=== PATIENT | male | born 1965 | race Caucasian/White ===

== ENCOUNTER 2020-08-08 13:03 | Outpatient (REF) | payer MEDICARE, MEDICAID, SELFPAY | END 2020-08-08 13:04 | disposition home or self-care (01) | LOC: HO.LAB 13:03 | PROVIDERS: Visit Provider Internal Medicine | DX: Z20.822 Contact with and (suspected) exposure to COVID-19 (principal) | CPT/HCPCS: 36415; C9803; U0003 ==

== ENCOUNTER 2021-02-13 09:39 | Emergency (ER) | payer MEDICARE, MEDICAID, SELFPAY ==
--- NOTE | 2021-02-13 | ECG_ITS ---
Test Reason : CHEST PAIN Blood Pressure : / mmHG Vent. Rate : 062 BPM Atrial Rate : 062 BPM P-R Int : 152 ms QRS Dur : 088 ms QT Int : 426 ms P-R-T Axes : 004 029 052 degrees QTc Int : 432 ms Normal sinus rhythm Normal ECG No significant changes when compared with the previous EKG of 17 dec 2015 Referred By: Generic ED Physician Electronically Signed By:NANCY TALLEY
--- NOTE | ~2021-02-13 | XR_ITS ---
EXAMINATION: XR CHEST CLINICAL INFORMATION: Chest pain. COMPARISON: None TECHNIQUE: Frontal view of the chest was obtained. FINDINGS: Both lungs are fairly well-expanded and clear. The heart size and pulmonary vascularity is normal. No gross bony abnormality seen. XR/XR chest 1V IMPRESSION: Unremarkable chest exam.
[2021-02-13 11:01] VITALS: BP 130/88; PULSE 60; RESP 22; TEMP 36.8; O2SAT 97; BMI 25.0
[2021-02-13 12:25] LABS: MANUAL DIFF FLAG NO
[2021-02-13 12:31] LABS: Basophils Percent Auto 0.4 % (0-2); Eosinophils Absolute Auto 0.1 X10*3/uL (0.0-0.4); Eosinophils Percent Auto 1.2 % (0-4); Hematocrit 42.8 % (42-52); Hemoglobin 14.3 g/dl (14.0-18.0); Imm Gran Abs Auto 0.02 X10*3/uL (0.00-0.03); Imm Gran Pct Auto 0.3 % (0.0-0.4); Lymphocytes Absolute Auto 2.6 X10*3/uL (1.2-4.9); Lymphocytes Percent Auto 33.8 % (20-40); Mean Corpuscular HGB Conc 33.4 g/dl (31.0-36.0); Mean Corpuscular Hemoglobin 30.4 pg (27.0-33.0); Mean Corpuscular Volume 91.1 fL (80-98); Mean Platelet Volume 9.3 fL (9.4-12.4); Monocytes Absolute Auto 0.7 X10*3/uL (0.1-1.2); Monocytes Percent Auto 8.6 % (2-11); Neutrophils Absolute Auto 4.3 X10*3/uL (2.0-8.3); Neutrophils Percent Auto 55.7 % (45-73); Platelet Count 338 X10*3/uL (160-400); Red Cell Distribution Width 12.5 % (11.0-16.0); White Blood Count 7.7 X10*3/uL (4.8-10.8)
[2021-02-13 13:11] LABS: Anion Gap 14 (12-20); Blood Urea Nitrogen 12 mg/dL (9-16); Calcium 9.3 mg/dL (8.4-10.2); Carbon Dioxide 25 mmol/L (22-29); Chloride 103 mmol/L (96-108); Creatinine Clr Calc Pharmacy 77.4; Estimated Glomerular Filt Rate > 60; Glucose Random 103 mg/dL (60-115); Potassium 4.2 mmol/L (3.3-5.1); Sodium 138 mmol/L (135-145)
[2021-02-13 13:18] LABS: Troponin-I High Sensitivity < 3.5 ng/L (<3.5-35.0)
[2021-02-13 13:27] VITALS: BP 129/87; PULSE 61; RESP 14; O2SAT 99
[2021-02-13 13:31] LABS: COVID-19 Test Negative (Negative)
--- NOTE | 2021-02-13 14:04 | ED.CHESTPAIN ---
HPI - Chest Pain General Chief Complaint: Chest Pain Stated Complaint: chest pain Time Seen by Provider: 02/13/21 12:37 History of Present Illness HPI narrative: Patient is a 55-year-old male presented having chest pain. The chest pain is 1-2 second is sharp it is worse with coughing. He goes to the arm. Patient has a history of smoking. No history diabetes. Positive history of hypertension. No history of PR. No stress test done recently. Positive history of high cholesterol. Patient denies any diaphoresis. Did get his coronavirus vaccine. Patient from home. No recent stress test done in the past. Related Data Previous Rx's Medication Instructions Recorded lisinopril 10 mg tablet 10 mg PO DAILY #90 tab 12/10/20 tramadol 50 mg tablet 50 mg PO Q8H 30 Days #90 tab 01/14/21 zolpidem 5 mg tablet 5 mg PO BEDTIME 90 Days #90 tab 02/06/21 lidocaine-prilocaine 2.5 %-2.5 % 1 appl TOPICAL .BID PRN 30 Days 02/10/21 topical cream #30 g Allergies Allergy/AdvReac Type Severity Reaction Status Date / Time trazodone AdvReac Intermediate dizziness Verified 02/06/21 12:08 Review of Systems Review of Systems: No fever no chills Positive coughing upper respiratory symptoms Positive chest pain with coughing All systems reviewed otherwise negative PMFSH Past Medical History Attestation statement: The following information was validated with the patient. Medical History Alcohol abuse Allergic rhinitis Anxiety and depression Chronic kidney disease Fracture of middle phalanx of finger GERD (gastroesophageal reflux disease) Herpes Hypercholesterolemia Hypertension Insomnia Left rib fracture Pulmonary nodule Tobacco abuse Wrist fracture, right Surgical History Deficient knowledge of leg surgery History of cataract surgery History of open reduction and internal fixation (ORIF) procedure Family History Family History Father No problems noted. Mother No problems noted. Maternal Aunt Colon cancer Myocardial infarction Maternal Uncle Myocardial infarction Brother No problems noted. Sister No problems noted. Daughter No problems noted. Social History Social History Housing: Apartment Patient Tobacco Use Status: Current someday Tobacco user Tobacco use type: Cigarette Cigarettes Per Day: 5 Advance Directives: No Advance Directives Information Provided: Yes service: No Current occupational status: disabled Physical Exam Vital Signs: Vital Signs: Last Vital Signs Temp 98.3 F 02/13/21 11:01 Pulse 61 02/13/21 13:27 Resp 14 02/13/21 13:27 BP 129/87 02/13/21 13:27 Pulse Ox 99 02/13/21 13:27 Body Mass Index 25.0 Appearance: Alert. Oriented X3. No acute distress. Eyes: Pupils equal, round and reactive to light. ENT: Pharynx normal. Neck: Normal inspection. Neck supple. No lymph nodes noted. No crepitus CVS: Normal heart rate and rhythm. Pulses normal. Normal S1 and S2 Respiratory: No respiratory distress. Breath sounds normal. No Wheezing. No rales Abdomen: Soft and nontender. No rigidity. No distention. good BS x4 Skin: Skin warm and dry. Normal skin color. Normal skin turgor. Extremities: No lower extremity edema. Neurovascular intact to all extremities. No Lacerations. No Rash Neuro: Oriented X 3. No motor deficit. No sensory deficit. Moving all extermities. No slurred speech MDM - Chest Pain MDM Narrative Medical decision making narrative: Atypical chest pain lasting 1-2 seconds patient's troponins negative. EKG showed a sinus pattern heart rate was 60 [place] QRS QT within normal limits is no acute ST segment elevation. Discussed with patient the need for follow-up. Patient's chest x-ray showed no evidence of pneumonia. No pneumothorax. Patient's COVID-19 test was negative no evidence for COVID for now. In stable condition. Lab Data Result diagrams: 02/13/21 12:22 02/13/21 12:22 Labs: Lab Results 02/13/21 02/13/21 02/13/21 Range/Units 12:22 12:22 12:22 WBC 7.7 (4.8-10.8) X10*3/uL RBC 4.70 (4.60-5.80) X10*6/uL Hgb 14.3 (14.0-18.0) g/dl Hct 42.8 (42-52) % MCV 91.1 (80-98) fL MCH 30.4 (27.0-33.0) pg MCHC 33.4 (31.0-36.0) g/dl RDW 12.5 (11.0-16.0) % Plt Count 338 (160-400) X10*3/uL MPV 9.3 L (9.4-12.4) fL Immature Gran % (Auto) 0.3 (0.0-0.4) % Neut % (Auto) 55.7 (45-73) % Lymph % (Auto) 33.8 (20-40) % [place] % (Auto) 8.6 (2-11) % Eos % (Auto) 1.2 (0-4) % Baso % (Auto) 0.4 (0-2) % Lymph # (Auto) 2.6 (1.2-4.9) X10*3/uL [place] # (Auto) 0.7 (0.1-1.2) X10*3/uL Eos # (Auto) 0.1 (0.0-0.4) X10*3/uL Baso # (Auto) 0.0 (0.0-0.2) X10*3/uL Abs Immat Gran (auto) 0.02 (0.00-0.03) X10*3/uL Absolute Neuts (auto) 4.3 (2.0-8.3) X10*3/uL Absolute Nucleated RBC 0.000 (0.0-0.012) X10*3/uL Nucleated RBC % (auto) 0.0 (0.0-0.2) /100WBC Sodium 138 (135-145) mmol/L Potassium 4.2 (3.3-5.1) mmol/L Chloride 103 (96-108) mmol/L Carbon Dioxide 25 (22-29) mmol/L Anion Gap 14 (12-20) BUN 12 (9-16) mg/dL Creatinine 1.10 (0.5-1.4) mg/dL Estim Creat Clear Calc 77.4 Estimated GFR > 60 Random Glucose 103 (60-115) mg/dL Calcium 9.3 (8.4-10.2) mg/dL Troponin I High Sens < 3.5 (<3.5-35.0) ng/L COVID-19 ([place]) (Negative) COVID-19 Clin Com 02/13/21 Range/Units 13:10 WBC (4.8-10.8) X10*3/uL RBC (4.60-5.80) X10*6/uL Hgb (14.0-18.0) g/dl Hct (42-52) % MCV (80-98) fL MCH (27.0-33.0) pg MCHC (31.0-36.0) g/dl RDW (11.0-16.0) % Plt Count (160-400) X10*3/uL MPV (9.4-12.4) fL Immature Gran % (Auto) (0.0-0.4) % Neut % (Auto) (45-73) % Lymph % (Auto) (20-40) % [place] % (Auto) (2-11) % Eos % (Auto) (0-4) % Baso % (Auto) (0-2) % Lymph # (Auto) (1.2-4.9) X10*3/uL [place] # (Auto) (0.1-1.2) X10*3/uL Eos # (Auto) (0.0-0.4) X10*3/uL Baso # (Auto) (0.0-0.2) X10*3/uL Abs Immat Gran (auto) (0.00-0.03) X10*3/uL Absolute Neuts (auto) (2.0-8.3) X10*3/uL Absolute Nucleated RBC (0.0-0.012) X10*3/uL Nucleated RBC % (auto) (0.0-0.2) /100WBC Sodium (135-145) mmol/L Potassium (3.3-5.1) mmol/L Chloride (96-108) mmol/L Carbon Dioxide (22-29) mmol/L Anion Gap (12-20) BUN (9-16) mg/dL Creatinine (0.5-1.4) mg/dL Estim Creat Clear Calc Estimated GFR Random Glucose (60-115) mg/dL Calcium (8.4-10.2) mg/dL Troponin I High Sens (<3.5-35.0) ng/L COVID-19 ([place]) Negative (Negative) COVID-19 Clin Com See Note Discharge Plan Discharge Clinical Impression: Chest pain Patient Disposition: Home, Self-Care Instructions: Chest Pain (ED) Prescriptions: No Action lisinopril 10 mg tablet 10 mg PO DAILY Qty: 90 RF: 2 tramadol 50 mg tablet 50 mg PO Q8H 30 Days Qty: 90 RF: 0 lidocaine-prilocaine 2.5-2.5 % cream 1 appl topical .BID PRN (Reason: pain) 30 Days Qty: 30 RF: 0 zolpidem 5 mg tablet 5 mg PO BEDTIME 90 Days Qty: 90 RF: 0 Referrals: Po,Stuart Branham MD [Primary Care Provider] - 2 days Print Language: Greenlandic
== END 2021-02-13 14:33 | disposition home or self-care (01) ==
PROVIDERS: Emergency Provider Emergency Medicine Emergency Medical Services; PCP Internal Medicine
DX: R07.9 Chest pain, unspecified (principal); R05 Cough; F17.210 Nicotine dependence, cigarettes, uncomplicated; Z20.822 Contact with and (suspected) exposure to COVID-19; Z71.6 Tobacco abuse counseling; Z79.899 Other long term (current) drug therapy
CPT/HCPCS: 36415; 71045; 80048; 84484; 85025; 87635; 93005; 99284

== ENCOUNTER 2021-04-24 09:42 | Emergency (ER) | payer MEDICARE, MEDICAID, SELFPAY ==
[2021-04-24 09:49] VITALS: BP 127/84; PULSE 58; RESP 16; TEMP 36.6; O2SAT 98; BMI 29.8
--- NOTE | 2021-04-24 10:47 | ED.BACK ---
HPI - Back Pain/Injury General Chief Complaint: Back Pain/Injury Stated Complaint: back & leg pain Time Seen by Provider: 04/24/21 10:10 Source: patient Mode of arrival: ambulatory Limitations: no limitations History of Present Illness HPI Narrative: 55 y/o male iwth history of anxiety, depression, HTN, HLD, GERD who presents to the ER with right lower back pain that radiates down his right leg. The pain started 1 week ago after lifting heavy metal at work. The pain has been progressively getting worse and he has been continuing to work and doing heavy lifting. He now walks with a limp because of the pain. He has been taking Tylenol with little relief. He denies any numbness, tingling, or bowel/bladder incontinence. He has no weakness in his LE, just pain. He denies history of pain like this before. MD elicited complaint: back pain and back injury Onset (ago): week(s) (1) Timing: constant Severity: severe Pain scale (0-10): 9 Similar Symptoms Previously: No Quality: aching and spasming Location: right lower back Radiation: right upper leg Exacerbating factors: movement Relieving factors: supine Context: while lifting Associated symptoms: denies other symptoms Treatments prior to arrival: acetaminophen Work related injury: Yes Related Data Previous Rx's Medication Instructions Recorded lisinopril 10 mg tablet 10 mg PO DAILY #90 tab 12/10/20 zolpidem 5 mg tablet 5 mg PO BEDTIME 90 Days #90 tab 02/06/21 lidocaine-prilocaine 2.5 %-2.5 % 1 appl TOPICAL .BID PRN 30 Days 02/10/21 topical cream #30 g benzonatate 100 mg capsule 100 mg PO TID PRN #20 cap 02/13/21 (Tessalon Perles) tramadol 50 mg tablet 50 mg PO Q8H 30 Days #90 tab 03/17/21 cyclobenzaprine 10 mg tablet 10 mg PO TID PRN #10 tab 04/24/21 lidocaine 5 % topical patch 1 patch TOPICAL DAILY #15 ea 04/24/21 (Lidoderm) tramadol 50 mg tablet 50 mg PO Q8H PRN #6 tab 04/24/21 Allergies Allergy/AdvReac Type Severity Reaction Status Date / Time trazodone AdvReac Intermediate dizziness Verified 02/06/21 12:08 Review of Systems Review of Systems: Constitutional: No Fever, No Chills Respiratory: No Cough, No Sputum, No Wheezing, No dyspnea Gastrointestinal: No Nausea, No Vomiting, No Diarrhea, No abdominal Pain Genitourinary: No Dysuria, No Urinary Frequency, No Hematuria Musculoskeletal: + joint pain, + Myalgias Skin: No Skin Lesions, No rash Neuro: No Weakness, No Numbness Heme/Lymph: No Bruising, No Lymphadenopathy PMFSH Past Medical History Medical History Alcohol abuse Allergic rhinitis Anxiety and depression Chronic kidney disease Fracture of middle phalanx of finger GERD (gastroesophageal reflux disease) Herpes Hypercholesterolemia Hypertension Insomnia Left rib fracture Pulmonary nodule Tobacco abuse Wrist fracture, right Surgical History Deficient knowledge of leg surgery History of cataract surgery History of open reduction and internal fixation (ORIF) procedure Family History Family History Father No problems noted. Mother No problems noted. Maternal Aunt Colon cancer Myocardial infarction Maternal Uncle Myocardial infarction Brother No problems noted. Sister No problems noted. Daughter No problems noted. Social History Social History Housing: Apartment Patient Tobacco Use Status: Current someday Tobacco user Tobacco use type: Cigarette Cigarettes Per Day: 5 Advance Directives: No service: No Current occupational status: disabled Physical Exam Vital Signs: Vital Signs: Last Vital Signs Temp 97.8 F 04/24/21 09:49 Pulse 58 04/24/21 09:49 Resp 16 04/24/21 09:49 BP 127/84 04/24/21 09:49 Pulse Ox 98 04/24/21 09:49 Body Mass Index 29.8 Appearance: Alert. Oriented X3. No acute distress. HEENT: normal external inspection Neck: Normal inspection. Neck supple. Respiratory: No respiratory distress. Abdomen: Soft and nontender. +BS x4 Back: normal inspection, right lower lumbar soft tissue tenderness with SI joint tenderness on the right. +straight leg raise on the right. Skin: Skin warm and dry. Normal skin color. Normal skin turgor. No rashes. Extremities: No lower extremity edema. Neuro: Oriented X 3. No motor deficit. No sensory deficit. Ambulates with slight limp, steady. Course Course Course Narrative: 55 yo male presenting with right lower back pain that radiates down into his right leg x1 week after heavy lifting. No red flag symptoms of low back pain. Will treat for muscle strain and probable sciatica. He agrees to follow up with Dr. Win and will take some time off of work to rest. Stable for d/c home. Discharge Plan Discharge Clinical Impression: Strain of lumbar region Qualifiers: Encounter type: initial encounter Qualified Code(s): S39.012A - Strain of muscle, fascia and tendon of lower back, initial encounter Sciatica Qualifiers: Laterality: right Qualified Code(s): M54.31 - Sciatica, right side Patient Disposition: Home, Self-Care Instructions: Sciatica (ED), Low Back Strain (ED), Lower Back Exercises (ED) Additional Instructions: No bending, lifting or twisting. Use ice several times per day for 20 minutes at a time for the next 48 hours and then change to heat. Take medications as prescribed to help with pain and discomfort. Follow up with your Primary Care Doctor this week. If your pain worsens, if you develop new numbness, tingling, weakness, loss of function or incontinence call 911 or come back to the ER right away for evaluation. Prescriptions: New cyclobenzaprine 10 mg tablet 10 mg PO TID PRN (Reason: muscle spasm) Qty: 10 RF: 0 lidocaine [Lidoderm] 5 % adhesive patch,medicated 1 patch topical DAILY Qty: 15 RF: 0 tramadol 50 mg tablet 50 mg PO Q8H PRN (Reason: pain) Qty: 6 RF: 0 No Action lisinopril 10 mg tablet 10 mg PO DAILY Qty: 90 RF: 2 lidocaine-prilocaine 2.5-2.5 % cream 1 appl topical .BID PRN (Reason: pain) 30 Days Qty: 30 RF: 0 tramadol 50 mg tablet 50 mg PO Q8H 30 Days Qty: 90 RF: 3 benzonatate [Tessalon Perles] 100 mg capsule 100 mg PO TID PRN (Reason: cough) Qty: 20 RF: 0 zolpidem 5 mg tablet 5 mg PO BEDTIME 90 Days Qty: 90 RF: 0 Referrals: Po,Stuart Branham MD [Primary Care Provider] - 3 days (LBP) Print Language: Zimbabwean
[2021-04-24] MEDS: HYDROcodone Bit/Acetam 5/325 TABLET 1 TAB PO (11:05)
[2021-04-24] MEDS: Ketorolac Tromethamine 15 MG/ML VIAL 30 MG IM (11:06)
[2021-04-24] MEDS: Lidocaine 4 % Patch ADH..PATCH 1 PATCH TRANSDERMA (11:09)
== END 2021-04-24 11:37 | disposition home or self-care (01) ==
PROVIDERS: Emergency Provider Emergency Medicine; PCP Internal Medicine
DX: M54.41 Lumbago with sciatica, right side (principal); M79.604 Pain in right leg; I10 Essential (primary) hypertension; F17.210 Nicotine dependence, cigarettes, uncomplicated; Z71.6 Tobacco abuse counseling; Z79.899 Other long term (current) drug therapy
CPT/HCPCS: 96372; 99284; J1885

== ENCOUNTER 2021-07-15 09:56 | Outpatient (REF) | payer MEDICARE, MEDICAID, SELFPAY ==
[2021-07-15 10:17] LABS: MANUAL DIFF FLAG NO
--- NOTE | 2021-07-15 10:18 | ECG_ITS ---
Test Reason : htn Blood Pressure : / mmHG Vent. Rate : 057 BPM Atrial Rate : 057 BPM P-R Int : 160 ms QRS Dur : 092 ms QT Int : 434 ms P-R-T Axes : 018 032 038 degrees QTc Int : 422 ms Sinus bradycardia Otherwise normal ECG When compared with ECG of 13-FEB-2021 10:10, No significant change was found Referred By: Stuart Win Electronically Signed By:NANCY TALLEY
[2021-07-15 10:58] LABS: Basophils Absolute Auto 0.1 X10*3/uL (0.0-0.2); Basophils Percent Auto 0.6 % (0-2); Eosinophils Absolute Auto 0.4 X10*3/uL (0.0-0.4); Eosinophils Percent Auto 4.8 % (0-4); Hemoglobin 14.5 g/dl (14.0-18.0); Imm Gran Abs Auto 0.02 X10*3/uL (0.00-0.03); Imm Gran Pct Auto 0.3 % (0.0-0.4); Lymphocytes Absolute Auto 3.8 X10*3/uL (1.2-4.9); Lymphocytes Percent Auto 47.9 % (20-40); Mean Corpuscular Volume 91.1 fL (80.0-98.0); Mean Platelet Volume 9.9 fL (9.4-12.4); Monocytes Absolute Auto 0.8 X10*3/uL (0.1-1.2); Monocytes Percent Auto 9.7 % (2-11); Neutrophils Absolute Auto 2.9 x10*3/uL (2.0-8.3); Neutrophils Percent Auto 36.7 % (45-73); Platelet Count 294 X10*3/uL (160-400); Red Blood Count 4.83 X10*6/uL (4.60-5.80); Red Cell Distribution Width 13.1 % (11.0-16.0)
[2021-07-15 11:21] LABS: Alanine Aminotransferase 26 U/L (0-40); Albumin Level 4.3 g/dL (3.5-5.0); Alkaline Phosphatase 72 U/L (39-117); Anion Gap 14 (12-20); Aspartate Amino Transferase 24 U/L (5-37); Bilirubin Total 0.6 mg/dL (0.0-1.0); Blood Urea Nitrogen 14 mg/dL (9-16); Calcium 9.4 mg/dL (8.4-10.2); Carbon Dioxide 26 mmol/L (22-29); Chloride 106 mmol/L (96-108); Cholesterol 246 mg/dL; Estimated Glomerular Filt Rate 59; Glucose Random 95 mg/dL (60-115); HDL Cholesterol 64 mg/dL; LDL Cholesterol Calculated 153 mg/dl; Potassium 4.3 mmol/L (3.3-5.1); Sodium 142 mmol/L (135-145); Total Protein 6.9 g/dL (6.5-8.0); Triglycerides 145 mg/dL
[2021-07-15 11:48] LABS: Free T4 (Free Thyroxine) 0.84 ng/dL (0.71-1.85); Prostate Specific Antigen Scr 1.43 ng/mL (<0.05-4.0)
[2021-07-15 12:00] LABS: Vitamin B12 286 pg/mL (200-900)
== END 2021-07-15 09:57 | disposition home or self-care (01) ==
LOC: HO.LAB 09:56
PROVIDERS: PCP Internal Medicine; Visit Provider Internal Medicine
DX: Z12.5 Encounter for screening for malignant neoplasm of prostate (principal); I10 Essential (primary) hypertension; E78.00 Pure hypercholesterolemia, unspecified; K21.9 Gastro-esophageal reflux disease without esophagitis
CPT/HCPCS: 36415; 80053; 80061; 82607; 82746; 84153; 84439; 84443; 85025; 93005

== ENCOUNTER 2021-09-23 10:59 | Emergency (ER) | payer MEDICARE, MEDICAID, SELFPAY ==
[2021-09-23 11:22] VITALS: BP 100/64; PULSE 59; RESP 16; TEMP 35.6; O2SAT 96; BMI 29.3
[2021-09-23 11:37] LABS: MANUAL DIFF FLAG NO
[2021-09-23 11:41] LABS: Basophils Percent Auto 0.3 % (0-2); Eosinophils Absolute Auto 0.1 X10*3/uL (0.0-0.4); Eosinophils Percent Auto 1.1 % (0-4); Hematocrit 41.9 % (42.0-52.0); Imm Gran Abs Auto 0.05 X10*3/uL (0.00-0.03); Imm Gran Pct Auto 0.4 % (0.0-0.4); Lymphocytes Absolute Auto 1.9 X10*3/uL (1.2-4.9); Lymphocytes Percent Auto 14.1 % (20-40); Mean Corpuscular HGB Conc 33.4 g/dl (31.0-36.0); Mean Corpuscular Hemoglobin 30.5 pg (27.0-33.0); Mean Corpuscular Volume 91.3 fL (80.0-98.0); Mean Platelet Volume 9.4 fL (9.4-12.4); Monocytes Absolute Auto 1.1 X10*3/uL (0.1-1.2); Neutrophils Percent Auto 76.1 % (45-73); Platelet Count 286 X10*3/uL (160-400); Red Blood Count 4.59 X10*6/uL (4.60-5.80); Red Cell Distribution Width 12.8 % (11.0-16.0); White Blood Count 13.2 X10*3/uL (4.8-10.8)
[2021-09-23 11:52] LABS: Anion Gap 12 (12-20); Blood Urea Nitrogen 12 mg/dL (9-16); Calcium 9.5 mg/dL (8.4-10.2); Carbon Dioxide 30 mmol/L (22-29); Chloride 102 mmol/L (96-108); Creatinine Clr Calc Pharmacy 59.4; Estimated Glomerular Filt Rate 52; Glucose Random 118 mg/dL (60-115); Potassium 4.3 mmol/L (3.3-5.1); Sodium 140 mmol/L (135-145)
--- NOTE | 2021-09-23 12:48 | ED.DIZZY ---
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 of arrival: ambulatory Limitations: no limitations History of Present Illness MD elicited complaint: lightheadedness Onset (ago): hour(s) (10 am today when he woke up) Timing: sudden onset, awoke with symptoms and intermittent Severity: moderate Description: lightheadedness Context: change in body position (happens anytime he stands feels fine laying down) History of similar symptoms: No Exacerbating factors: change in body position and standing Relieving factors: remaining still and lying down Associated symptoms: nausea and vomiting (1) Related Data Previous Rx's Medication Instructions Recorded lisinopril 10 mg tablet 10 mg PO DAILY #90 tab 09/08/21 tramadol 50 mg tablet 50 mg PO Q8H 30 Days #90 tab 09/08/21 zolpidem 10 mg tablet 10 mg PO BEDTIME 30 Days #20 tab 09/10/21 ondansetron 4 mg disintegrating 4 mg PO Q8H PRN #20 tab 09/23/21 tablet Allergies Allergy/AdvReac Type Severity Reaction Status Date / Time trazodone AdvReac Intermediate dizziness Verified 09/08/21 10:34 Review of Systems Review of Systems: Constitutional : No Weight loss, No Fever, No Chills ENT/Mouth : No sore throat, No Rhinorrhea Eyes: No Swelling, No Redness Cardiovascular : No Chest Pain, No SOB, NoEdema Respiratory : No Cough, No Sputum, No Wheezing Gastrointestinal : Positive Nausea, Positive Vomiting, no Diarrhea, no abdominal Pain, No Hematochezia, No Melena Genitourinary : No Dysuria, No Urinary Frequency, No Hematuria, No Urgency Musculoskeletal : No joint pain, No Myalgias, No Joint Swelling Skin : No Skin Lesions, No rash Neuro : No Weakness, No Numbness, pos Dizziness, No Headache Psych : No Anxiety/Panic, No Depression Heme/Lymph: No Bruising, No Lymphadenopathy Endocrine : No Polyuria, No Polydipsia All other systems reviewed and are negative. [facility] Past Medical History Medical History (Updated 09/23/21 @ 14:50 by Dalia Moore DO) Alcohol abuse Allergic rhinitis Chronic kidney disease Fracture of middle phalanx of finger GERD (gastroesophageal reflux disease) Herpes Hypercholesterolemia Hypertension Insomnia Left rib fracture Pulmonary nodule Tobacco abuse Wrist fracture, right Surgical History (Updated 09/21/21 @ 13:43 by Nata Ramos RN) Deficient knowledge of leg surgery H/O colonoscopy History of cataract surgery History of open reduction and internal fixation (ORIF) procedure History of pterygium excision Family History Family History Father No problems noted. Mother No problems noted. Maternal Aunt Colon cancer Myocardial infarction Maternal Uncle Myocardial infarction Colon cancer Brother No problems noted. Sister No problems noted. Daughter No problems noted. Social History Social History (Updated 09/21/21 @ 13:44 by Nata Ramos RN) Housing: Apartment Alcohol intake: current Alcohol intake frequency: former alcohol drinker Patient Tobacco Use Status: Former Tobacco user Quit Date: 07/2021 Tobacco use type: Cigarette Cigarettes Per Day: 5 Years Smoked: 35 e-Cigarette/Vaping Use: Never Used Second Hand Smoke Exposure: No Advance Directives: No Advance Directives Information Provided: No service: No Current occupational status: disabled Cognitive needs: No Hearing needs: No Vision needs: Yes (Glasses) Physical Exam Vital Signs: Vital Signs: Last Vital Signs Temp 96.1 F L 09/23/21 11:22 Pulse 55 09/23/21 13:35 Resp 18 09/23/21 13:35 BP 128/79 09/23/21 13:35 Pulse Ox 100 09/23/21 13:35 BMI result Body Mass Index 29.3 Appearance: Alert. Oriented X3. No acute distress. Eyes: Pupils equal, round and reactive to light. ENT: Pharynx normal. Neck: Normal inspection. Neck supple. CVS: Normal heart rate and rhythm. Pulses normal. Respiratory: No respiratory distress. Breath sounds normal. Abdomen: Soft and non-tender. Skin: Skin warm and dry. Normal skin color. Normal skin turgor. Extremities: No lower extremity edema. No calf ttp Neuro: Oriented X 3. No motor deficit. No sensory deficit. no drift, steady gait no ataxia Course Course Course Narrative: HR in 50 not on any bblockers - sinus bradycardia BP stable feels much better after fluids, no dizziness up and walking eating a sandwhich would like to go home MDM - Dizziness MDM Narrative Medical decision making narrative: 55 yo male with hx of anxiety, HLD, HTN, GERD comes in with c/o feeling lightheaded while standing no symptoms at rest, he woke up feeling dizzy this AM at 10am and vomited. He has no pain no headache/CP/SOB no GIB symptoms. No neuro deficits no change in vision/ataxia/drift. At this time will obtain basic labs, EKG, ortho VS, doubt posterior stroke no neuro symptoms, no CP/SOB to suggest ACS. Will reassess after hydration. Lab Data Result diagrams: 09/23/21 11:31 09/23/21 11:31 Labs: Lab Results 09/23/21 09/23/21 Range/Units 11:31 11:31 WBC 13.2 H (4.8-10.8) X10*3/uL RBC 4.59 L (4.60-5.80) X10*6/uL Hgb 14.0 (14.0-18.0) g/dl Hct 41.9 L (42.0-52.0) % MCV 91.3 (80.0-98.0) fL MCH 30.5 (27.0-33.0) pg MCHC 33.4 (31.0-36.0) g/dl RDW 12.8 (11.0-16.0) % Plt Count 286 (160-400) X10*3/uL MPV 9.4 (9.4-12.4) fL Immature Gran % (Auto) 0.4 (0.0-0.4) % Neut % (Auto) 76.1 H (45-73) % Lymph % (Auto) 14.1 L (20-40) % [facility] % (Auto) 8.0 (2-11) % Eos % (Auto) 1.1 (0-4) % Baso % (Auto) 0.3 (0-2) % Lymph # (Auto) 1.9 (1.2-4.9) X10*3/uL [facility] # (Auto) 1.1 (0.1-1.2) X10*3/uL Eos # (Auto) 0.1 (0.0-0.4) X10*3/uL Baso # (Auto) 0.0 (0.0-0.2) X10*3/uL Abs Immat Gran (auto) 0.05 H (0.00-0.03) X10*3/uL Absolute Neuts (auto) 10.0 H (2.0-8.3) x10*3/uL Absolute Nucleated RBC 0.000 (0.0-0.012) X10*3/uL Nucleated RBC % (auto) 0.0 (0.0-0.2) /100WBC Sodium 140 (135-145) mmol/L Potassium 4.3 (3.3-5.1) mmol/L Chloride 102 (96-108) mmol/L Carbon Dioxide 30 H (22-29) mmol/L Anion Gap 12 (12-20) BUN 12 (9-16) mg/dL Creatinine 1.40 (0.5-1.4) mg/dL Estim Creat Clear Calc 59.4 Estimated GFR 52 Random Glucose 118 H (60-115) mg/dL Calcium 9.5 (8.4-10.2) mg/dL ECG Data Attestation: I personally reviewed and interpreted this ECG as follows: ECG interpretation date: 09/23/21 ECG interpretation time: 14:03 Interpretation: Rate: 49 Rhythm: sinus bradycardia [place]: normal Normal P waves. Normal [place]. Normal QRS complex. ST T wave : normal no TYRELL qTC: normal prior studies: no acute ischemia The study has been interpreted contemporaneously by me. Discharge Plan Discharge Clinical Impression: Dizziness Nausea & vomiting Qualifiers: Vomiting type: unspecified Qualified Code(s): R11.2 - Nausea with vomiting, unspecified Patient Disposition: Home, Self-Care Instructions: Acute Nausea and Vomiting (ED), Dizziness (ED) Additional Instructions: return to ED for any worsening symptoms or concerns Prescriptions: New ondansetron 4 mg tablet,disintegrating 4 mg PO Q8H PRN (Reason: nausea and vomiting) Qty: 20 0RF No Action zolpidem 10 mg tablet 10 mg PO BEDTIME 30 Days Qty: 20 0RF tramadol 50 mg tablet 50 mg PO Q8H 30 Days Qty: 90 0RF lisinopril 10 mg tablet 10 mg PO DAILY Qty: 90 2RF Print Language: Japanese
--- NOTE | 2021-09-23 12:56 | ECG_ITS ---
Test Reason : cp Blood Pressure : / mmHG Vent. Rate : 049 BPM Atrial Rate : 049 BPM P-R Int : 160 ms QRS Dur : 082 ms QT Int : 452 ms P-R-T Axes : 044 018 033 degrees QTc Int : 408 ms Sinus bradycardia Otherwise normal ECG When compared with ECG of 15-JUL-2021 10:27, No significant change was found Referred By: Dalia Moore Electronically Signed By:Keyon Arango
[2021-09-23 13:30] VITALS: BP 103/62; BP 119/76; PULSE 47; PULSE 53
[2021-09-23 13:33] VITALS: BP 128/79; PULSE 55
[2021-09-23 13:35] VITALS: BP 128/79; PULSE 55; RESP 18; O2SAT 100
[2021-09-23] MEDS: 0.9 % Sodium Chloride 1,000 ML 999 ML IV (13:54)
[2021-09-23] MEDS: ondansetron HCL 4 MG/2 ML VIAL IVPUSH (13:54)
== END 2021-09-23 15:02 | disposition home or self-care (01) ==
PROVIDERS: Emergency Provider Emergency Medicine; PCP Internal Medicine
DX: R42 Dizziness and giddiness (principal); R11.2 Nausea with vomiting, unspecified; I12.9 Hypertensive chronic kidney disease with stage 1 through stage 4 chronic kidney disease, or unspecified chronic kidney disease; N18.9 Chronic kidney disease, unspecified; F17.200 Nicotine dependence, unspecified, uncomplicated
CPT/HCPCS: 36415; 80048; 85025; 93005; 96361; 96374; 99284; J2405

== ENCOUNTER 2021-09-28 08:55 | Day surgery (SDC) | payer MEDICARE, MEDICAID, SELFPAY ==
[2021-09-21 14:00] VITALS: BMI 29.7
--- NOTE | 2021-09-24 13:08 | MHC.SHP ---
Pre-Procedural Eval Section A Date of Service: 09/24/21 The patient is an INPATIENT: No Changes since office visit: No Cold of Flu in the past 2 weeks, No New Medical Problems, No Changes in Medication and No Patient answered all questions The History & Physical has been completed within 30 days and I have reviewed it.: Yes Section B Chief Complaint: pterygium Allergies: Allergies Allergy/AdvReac Type Severity Reaction Status Date / Time trazodone AdvReac Intermediate dizziness Verified 09/08/21 10:34 Plan Diagnosis/Plan: Unchanged I have reviewed the history and physical and performed a pertinent physical examination on my patient. No changes have occurred unless specified.
[2021-09-28 10:44] VITALS: BP 129/56; PULSE 54; RESP 16; TEMP 36.1; O2SAT 98
--- NOTE | 2021-09-28 11:32 | P.CONAN_ITS ---
HPI - Anesthesia Eval Consult details Narrative: left eye pterygium PMFSH Active Problems Active Problems: All Active Problems (Updated 09/24/21 @ 00:03 by Background Daemon) Conjunctivitis (Acute) Lateral epicondylitis of both elbows (Acute) Annual physical exam (Acute) Generalized anxiety disorder (Acute) Pre-op evaluation (Acute) Insomnia (Acute) Chronic kidney disease (Acute) Tobacco abuse (Acute) Hypercholesterolemia (Acute) Hypertension (Acute) GERD (gastroesophageal reflux disease) (Acute) Past Medical History Medical History (Updated 09/24/21 @ 00:03 by Background Daemon) Alcohol abuse Allergic rhinitis Chronic kidney disease Fracture of middle phalanx of finger GERD (gastroesophageal reflux disease) Herpes Hypercholesterolemia Hypertension Insomnia Left rib fracture Pulmonary nodule Tobacco abuse Wrist fracture, right Family History Family History Father No problems noted. Mother No problems noted. Maternal Aunt Colon cancer Myocardial infarction Maternal Uncle Myocardial infarction Colon cancer Brother No problems noted. Sister No problems noted. Daughter No problems noted. Family history of problems with anesthesia: No Surgical History Surgical History (Updated 09/21/21 @ 13:43 by Nata Ramos RN) Deficient knowledge of leg surgery H/O colonoscopy History of cataract surgery History of open reduction and internal fixation (ORIF) procedure History of pterygium excision History of Problems with Anesthesia: No Social History Social History (Updated 09/21/21 @ 13:44 by Nata Ramos RN) Housing: Apartment Alcohol intake: current Alcohol intake frequency: former alcohol drinker Patient Tobacco Use Status: Former Tobacco user Quit Date: 07/2021 Tobacco use type: Cigarette Cigarettes Per Day: 5 Years Smoked: 35 Smoked in Last 30 Days: Yes e-Cigarette/Vaping Use: Never Used Second Hand Smoke Exposure: No Use of substances other than those prescribed or required for medical reasons: No Have you been hit, kicked, punched, or otherwise hurt by someone within the past year? If so, by whom?: No Advance Directives Information Provided: Yes (brochure mailed) Advance Directives on File: No service: No Current occupational status: disabled Cognitive needs: No Hearing needs: No Vision needs: Yes (Glasses) Meds Allergies Allergy/AdvReac Type Severity Reaction Status Date / Time trazodone AdvReac Intermediate dizziness Verified 09/08/21 10:34 Active Medications: Current Medications Lactated Ringer's (Lr) 500 mls @ 50 mls/hr IVCONT .Q10H [place] Povidone Iodine (Povidone Iodine 5 % Ophth Soln 30 Ml Bottle) 1 appl EYE-LEFT PREOP PRN PRN Reason: Pre-Op Surgical Implant Prophy Exam Exam Date and Time: September 28, 2021 1132 Height,Weight and Vital Signs: Height 5 ft 6 in Weight 83.518 kg Last Vital Signs Temp 96.9 F 09/28/21 10:44 Pulse 54 09/28/21 10:44 Resp 16 09/28/21 10:44 BP 129/56 L 09/28/21 10:44 Pulse Ox 98 09/28/21 10:44 Airway Mallampati Class: II TM Dist: >3cm Neck ROM: Full Loose/Missing/Broken Teeth: No Heart: [id number] Lungs: cta b/l Assessment and Plan Assessment Anesthesia Assessment: Anesthesia Plan Discussed and Chart Reviewed Final Anesthetic Review Family History of Problems with Anesthesia: No History of Problems with Anesthesia: No NPO: Yes ASA Class: III Final Preanesthetic Review: No Changes in Pt Med Stat, Meds/Allgs Chart Reviewed, Consent Obtained/Reviewed and Anes Risks/Benef Reviewed Patient Risk: Intermediate Procedure Risk: Low Assessment/Block/Sedation in SS: Assess/Block/Sedation-SS Anesthetic Plan Anesthetic Plan: MAC: and Agree w/ Assess. and Plan Disposition: Standard PACU
--- NOTE | 2021-09-28 12:18 | P.PCNO_ITS ---
Ophthalmology Procedure Procedure Date of Service: 09/28/21 Ophthalmology Viscoelastic: Not Applicable Ophthalmology Lenses: Not Applicable Procedure Notes: PREOPERATIVE DIAGNOSIS: Pterygium left eye POSTOPERATIVE DIAGNOSIS: Same PROCEDURE: Pterygium resection with conjunctival graph left eye SURGEON: Александр Cifuentes M.D. ANESTHESIA: Topical/MAC ESTIMATED BLOOD LOSS: None COMPLICATIONS: None After obtaining informed consent, the patient was brought to the operating room suite and placed in supine position. After adequate sedation per Anesthesia, topical drops of Tetracaine were given to the left eye. The eye was then prepped and draped in the usual sterile fashion. Attention was directed to the left eye where a lid speculum was placed. Tetracaine was instilled topically, followed by subconjunctival injections of Lidocaine below the pterygium and below the lawson perior conjunctiva where the graft was to be harvested from. Utilizing a combination of sharp and blunt dissection with Tano scissors, the pterygium was resected from the cornea, as well as the bulbar conjunctiva. A graft was then harvested from the superior site and placed in the conjunctival bed. It was sutured in place with 7-0 Vicryl sutures in a running fashion. Attention was directed superiorly where the graft harvest site was closed with additional 7-0 Vicryl interrupted sutures. Antibiotic ointment was instilled into the cul de sac. The lid speculum was removed. The patient tolerated the procedure well and will be followed up.
[2021-09-28 13:23] VITALS: BP 124/73; PULSE 48; RESP 18; TEMP 36.2; O2SAT 99
--- NOTE | 2021-09-28 17:46 | PC.NURSE ---
[id number] telephone call from patient daughter reports patient had procedure today complaining of severe eye pain. advised patient to contact surgeon, dr. garcia immediately. phone information provided to contact daquan
== END 2021-09-28 13:36 ==
LOC: HO.SSS 08:55
PROVIDERS: PCP Internal Medicine; Visit Provider Ophthalmology
PROC: (CPT 65426; principal; 2021-09-28 12:00)
DX: H11.002 Unspecified pterygium of left eye (principal); H52.4 Presbyopia; I12.9 Hypertensive chronic kidney disease with stage 1 through stage 4 chronic kidney disease, or unspecified chronic kidney disease; N18.9 Chronic kidney disease, unspecified; Z87.891 Personal history of nicotine dependence; E78.00 Pure hypercholesterolemia, unspecified; Z79.899 Other long term (current) drug therapy
CPT/HCPCS: 65426; 88304; J2250; J3010